=== PATIENT | female | born 1980 ===

== ENCOUNTER 2017-12-28 13:24 | Emergency (ER) | payer OTHER ==
[2017-12-28 13:33] VITALS: RESP 18
--- NOTE | 2017-12-28 13:49 | C.PDOC ---
History Of Present Illness 37 Y/O FEMALE PRESENTS TO ED WITH COMPLAINTS OF NEW ONSET RIGHT LOWER ABDOMEN PAIN X 3 DAYS, NEW ONSET RADIATION TO RIGHT GROIN/PELVIC AREA AND RIGHT LEG. PATIENT REPORTS PAIN IS NOW CONSTANT NO ASSOC W MOVEMENT OR POSITION. PATIENT DENIES HO CHRONIC LBP, KNOWN RADICULOPATHY. NO FEVER, NVD, UTI SX. LMP 2 WKS. PSH TUMMY TUCK, CSECT, R INGUINAL REPAIR APPROX 3-4 MO AGO. EXAM NONTOXIC NAD ABD SOFT NT ND NO R/G BACK AROM WO DIFF NO CVAT NEURO INTACT GAIT WNL REMAINDER NEG Time Seen by Provider: 12/28/17 13:37 Chief Complaint (Nursing): Back Pain History Per: Patient History/Exam Limitations: no limitations Onset/Duration Of Symptoms: Days Current Symptoms Are (Timing): Still Present Past Medical History Reviewed: Historical Data, Nursing Documentation, Vital Signs Vital Signs: Last Vital Signs Temp 98.7 F 12/28/17 16:25 Pulse 68 12/28/17 16:25 Resp 18 12/28/17 16:25 BP 119/77 12/28/17 16:25 Pulse Ox 100 12/28/17 16:25 - Medical History PMH: No Chronic Diseases Surgical History: No Surg Hx Family History: States: No Known Family Hx - Social History Hx Tobacco Use: No Hx Alcohol Use: No Hx Substance Use: No - Immunization History Hx Tetanus Toxoid Vaccination: No Hx Influenza Vaccination: No Hx Pneumococcal Vaccination: No Review Of Systems Constitutional: Negative for: Fever, Chills Gastrointestinal: Positive for: Abdominal Pain. Negative for: Nausea, Vomiting , Diarrhea Genitourinary: Positive for: Pelvic Pain Musculoskeletal: Positive for: Leg Pain Skin: Negative for: Rash Neurological: Negative for: Weakness, Numbness Physical Exam - Physical Exam Appears: Non-toxic, No Acute Distress Skin: Warm, Dry, No Rash Head: Atraumatic, Normacephalic Oral Mucosa: Moist Neck: Normal ROM, Supple Cardiovascular: Rhythm Regular Respiratory: Normal Breath Sounds, No Rales, No Rhonchi, No Wheezing Gastrointestinal/Abdominal: Soft, No Tenderness, No Guarding, No Rebound Back: No CVA Tenderness Extremity: Normal ROM, Capillary Refill (<2 seconds) Neurological/Psych: Oriented x3, Normal Speech, Normal Motor, Normal Sensation Gait: Steady ED Course And Treatment - Laboratory Results Result Diagrams: 12/28/17 13:57 12/28/17 13:57 O2 Sat by Pulse Oximetry: 99 (RA) Pulse Ox Interpretation: Normal Reevaluation Time: 17:26 Reassessment Condition: Unchanged (NO S/S ACUTE ABD. POSSIBLE LUMBAR RADICULOPATHY. FU PMD) Disposition Counseled Patient/Family Regarding: Studies Performed, Diagnosis, Need For Followup, Rx Given - Disposition Referrals: YOUR,PMD [Other] Disposition: HOME/ ROUTINE Disposition Time: 17:26 Condition: IMPROVED Prescriptions: Acetaminophen/Codeine [Tylenol/Codeine 300 MG/30 MG] 1 tab PO Q4H #12 tab Gabapentin [Neurontin] 300 mg PO TID #30 cap Ibuprofen [Motrin] 600 mg PO Q6 #30 tab Instructions: Low Back Pain (DC), Radiculopathy Forms: [facility] (Telugu), Work Excuse - Clinical Impression Clinical Impression: Low back pain, Sciatica - Scribe Statement The provider has reviewed the documentation as recorded by the Dorcas Charles All medical record entries made by the Dorcas were at my direction and personally dictated by me. I have reviewed the chart and agree that the record accurately reflects my personal performance of the history, physical exam, medical decision making, and the department course for this patient. I have also personally directed, reviewed, and agree with the discharge instructions and disposition.
[2017-12-28 14:00] LABS: BASO % 0.7 % (0.0-2.0); EOS # 0.2 K/uL (0.0-0.7); EOS % 4.6 % (0.0-4.0); HEMOGLOBIN 12.5 g/dL (11.0-16.0); LYMPH # 1.7 K/uL (1.0-4.3); LYMPH % 40.1 % (20.0-40.0); MEAN CELL VOLUME 83.3 fL (81.0-99.0); MEAN CORPUSCULAR HEMOGLOBIN 27.3 pg (27.0-31.0); MEAN CORPUSCULAR HGB CONC 32.7 g/dL (33.0-37.0); MONO # 0.4 K/uL (0.0-0.8); MONO % 10.4 % (0.0-10.0); NEUT # 1.9 K/uL (1.8-7.0); NEUT % 44.2 % (50.0-75.0); NRBC % 0.1 % (0.0-2.0); RBC 4.58 Mil/uL (3.80-5.20); RED CELL DISTRIBUTION WIDTH 14.2 % (11.5-14.5); WHITE BLOOD COUNT 4.2 K/uL (4.8-10.8)
[2017-12-28 14:09] LABS: SQUAMOUS EPITHIAL < 1 /hpf (0-5); URINE BILIRUBIN NEGATIVE (NEGATIVE); URINE BLOOD 1+ (NEGATIVE); URINE CLARITY Clear (Clear); URINE COLOR Yellow (YELLOW); URINE GLUCOSE (UA) NORMAL (Normal); URINE LEUKOCYTE ESTERASE NEG Leu/uL (Negative); URINE PROTEIN NEGATIVE (NEGATIVE)
[2017-12-28 14:14] LABS: BLOOD UREA NITROGEN 14 mg/dL (7-17); CALCIUM 8.7 mg/dl (8.6-10.4); GFR AFRICAN-AMERICAN > 60; GFR NON-AFRICAN AMERICAN > 60
[2017-12-28 16:26] VITALS: BP 119/77; PULSE 68; TEMP 98.7
--- NOTE | 2017-12-28 16:52 | CT ---
PROCEDURE: CT Abdomen and Pelvis without Oral or IV contrast. HISTORY: R BACK PAIN COMPARISON: CT abdomen and pelvis with contrast performed 05/22/14 TECHNIQUE: Contiguous axial images of the abdomen and pelvis. No oral or IV contrast administered. Coronal and Sagittal reformats generated. Radiation dose: Total exam DLP = 415.21 mGy-cm. This CT exam was performed using one or more of the following dose reduction techniques: Automated exposure control, adjustment of the mA and/or kV according to patient size, and/or use of iterative reconstruction technique. FINDINGS: There is limited evaluation of the solid organs without the administration of IV contrast. LOWER THORAX: No visible consolidation, pleural effusion, or pneumothorax. 8 x 14 mm nodular density within the medial right breast (series 3, image 15), indeterminate. LIVER: Unremarkable unenhanced appearance. GALLBLADDER AND BILE DUCTS: Unremarkable unenhanced appearance. PANCREAS: Unremarkable unenhanced appearance. SPLEEN: Unremarkable unenhanced appearance. ADRENALS: Unremarkable unenhanced appearance. KIDNEYS AND URETERS: No hydronephrosis or obstructing renal calculus. BLADDER: The urinary bladder appears unremarkable. REPRODUCTIVE: Uterus is present. APPENDIX: The appendix appears within normal limits of caliber. No secondary signs of acute appendicitis. BOWEL: The stomach is nondistended. Lack of oral contrast limits evaluation for bowel pathology. The bowel loops appear within normal limits of caliber without evidence of intestinal obstruction. PERITONEUM: No significant free fluid. No definite free air. LYMPH NODES: No bulky lymphadenopathy identified. VASCULATURE: No aortic aneurysm. BONES: No acute osseous abnormality is detected. OTHER FINDINGS: Midline skin thickening/fluid measures approximately 11 mm (AP) by 12 mm (transverse) by 101 mm (cc) ; correlate clinically. IMPRESSION: 8 x 14 mm nodular density within the medial right breast, indeterminate. Recommend correlation with dedicated breast imaging. Midline skin thickening/fluid measures approximately 11 mm (AP) by 12 mm (transverse) by 101 mm (cc) ; correlate clinically.
[2017-12-28 17:28] VITALS: O2SAT 99
== END 2017-12-28 17:42 | disposition home or self-care (01) ==
LOC: C.ER 13:24
DX: M54.40 Lumbago with sciatica, unspecified side (principal)
CPT/HCPCS: 74176; 80048; 81001; 85025; 96374; 99284; J1885